=== PATIENT | female | born 1995 | race Caucasian/White ===

== ENCOUNTER 2017-06-05 17:00 | Inpatient (IN) ==
[2017-06-05] MEDS ORDERED: CALCIUM CARBONATE Chewable 500mg TABLET PO PRN (17:39)
[2017-06-05] MEDS ORDERED: METHYLERGONOVINE 0.2 MG/ML INJECTION IM PRN (17:39)
[2017-06-05] MEDS ORDERED: LIDOCAINE 1% (10mg/ml) 2mL INJ PF SDV ID PRN (17:39)
[2017-06-05] MEDS ORDERED: LR 1,000 ML IV PRN (17:39)
[2017-06-05] MEDS ORDERED: ACETAMINOPHEN 500 MG TABLET PO PRN (17:39)
[2017-06-05] MEDS ORDERED: CARBOPROST 250 MCG/ML INJECTION IM PRN (17:39)
[2017-06-05] MEDS ORDERED: MAG-AL + SIM ORAL LIQUID 30ml PO PRN (17:39)
[2017-06-05 19:16] VITALS: BMI 25.0
[2017-06-05] MEDS ORDERED: DiphenhydrAMINE 25 MG CAPSULE PO PRN (21:16)
[2017-06-05] MEDS ORDERED: OXYTOCIN DRIP 30 UNIT/500 ML ML IV SCH (21:16)
[2017-06-05] MEDS ORDERED: HYDROCORTISONE 2.5% CREAM 30gm RECTALLY PRN (21:16)
[2017-06-05] MEDS ORDERED: HYDROCODONE/APAP 5mg/325mg TABLET PO PRN (21:16)
[2017-06-05] MEDS: IBUPROFEN 800 MG TABLET PO PRN (21:17)
[2017-06-06] MEDS: IBUPROFEN 800 MG TABLET PO PRN ×2 (06:51→15:27)
--- NOTE | 2017-06-06 08:08 | OB/GYN Progress Note ---
OB-PP Progress Note - General PPD1 Maternal Group B Strep: Negative Maternal blood type: O+ Maternal Rubella Status: Immune - Subjective Date: 06/06/17 Lochia: Minimal Pain: controlled Voiding: voiding - Objective Vital Signs: Last Vital Signs Temp 98.2 F 06/06/17 00:49 Pulse 68 06/06/17 00:49 Resp 14 06/06/17 00:49 BP 108/58 06/06/17 00:49 General: alert and oriented Abdomen: fundus firm, non-tender Extremities: non-tender Laboratory: Laboratory Results - last 24 hr 06/05/17 06/05/17 18:06 18:06 WBC 8.1 RBC 4.29 Hgb 10.9 L Hct 35.0 L MCV 81.6 MCH 25.4 L MCHC 31.1 RDW Std Deviation 40.1 Plt Count 226 MPV 10.0 Blood Type O Positive Antibody Screen Negative - Assessment Assessment: - Plan Plan: routine care
--- NOTE | 2017-06-06 13:09 | Labor and Delivery Note ---
DATE OF DELIVERY: 06/05/2017 DELIVERY NOTE Iman is a 21-year-old, 1 at 38 weeks 2 days gestational age, who presented to the office with complaints of contractions. She was 0, so she was sent over to Maternal Child. Her membranes were ruptured spontaneously returning clear fluids. Less than 3 hours later she was complete and pushing. I placed a pudendal block. She only had to push for a few contractions and had a spontaneous vaginal delivery of a viable female infant, Apgars 8/9, weight 3207 g, name "Chantelle." The placenta delivered spontaneously. She had a small second-degree laceration that was repaired. Prior to the placenta delivering, baby was placed on mom's abdomen and the cord clamping was delayed for more than 2 minutes. Mom and baby tolerated the delivery well. STEVEN
[2017-06-06 13:19] VITALS: RESP 16
[2017-06-07] MEDS: DOCUSATE CALCIUM 240 MG CAPSULE PO SCH ×2 (04:11→09:24)
--- NOTE | 2017-06-07 07:48 | OB/GYN Progress Note ---
OB-PP Progress Note - General PPD2 Maternal Group B Strep: Negative Maternal blood type: O+ Maternal Rubella Status: Immune - Subjective Date: 06/07/17 Lochia: Minimal Pain: controlled Voiding: voiding - Objective Vital Signs: Last Vital Signs Temp 97.8 F 06/06/17 20:45 Pulse 80 06/06/17 20:45 Resp 16 06/06/17 20:45 BP 105/57 06/06/17 20:45 Pulse Ox 96 06/06/17 20:45 General: alert and oriented - Assessment Assessment: - Plan Plan: routine care, discharge home, continue PNV
[2017-06-07] MEDS: IBUPROFEN 800 MG TABLET PO PRN (08:12)
[2017-06-07 13:47] VITALS: BP 100/57; PULSE 86; TEMP 97.9; O2SAT 97
== END 2017-06-07 14:03 | disposition home or self-care (01) | DRG 775 ==
LOC: MC 17:00
PROVIDERS: ADMIT Obstetrics & Gynecology; ATTEND Obstetrics & Gynecology